=== PATIENT | male | born 1995 | race Caucasian/White ===

== ENCOUNTER 2018-02-07 00:29 | Emergency (ER) | payer SELFPAY ==
--- NOTE | 2018-02-07 01:01 | EDPHY ---
H & P Stated Complaint: CP, shaking, anxious, lightheaded x 15 min (pain resolved) Time Seen by Provider: 02/07/18 00:49 HPI/ROS: Chief Complaint: Chest pain HPI: 20-year-old male had a 50 sec episode of chest pain approximately 1 hr ago shortly after getting out of the shower. Within the left-sided chest. Patient states that after that he felt a little bit dizzy with some mild nausea. He did not lose consciousness. Did not feel like his heart was racing. Does not have a history of similar episodes in the past. Does not smoke, drink alcohol or use other drugs. No prior episodes. No family history of coronary artery disease at a young age. No leg pain or swelling. No recent falls or injuries. Currently is symptom free and without complaint. ROS: 10 systems were reviewed and were negative except those elements noted in the HPI. PMH: Denies Social History: No smoking, no alcohol, no recreational drug use Family History: non-contributory Physical Exam: Gen: Awake, Alert, No Distress HEENT: Nose: no rhinorrhea Eyes: PERRLA, EOMI Mouth: Moist mucosa Neck: Supple, no JVD Chest: nontender, lungs clear to auscultation Heart: S1, S2 normal, no murmur Abd: Soft, non-tender, no guarding Back: no CVA tenderness, no midline tenderness Ext: no edema, non-tender Skin: no rash Neuro: CN II-XII intact, Sensation grossly intact, Strength 5/5 in bilateral upper and lower extremities - Personal History Current Tetanus/Diphtheria Vaccine: Yes Current Tetanus Diphtheria and Acellular Pertussis (TDAP): Yes - Medical/Surgical History Hx Asthma: Yes Hx Chronic Respiratory Disease: No Hx Diabetes: No Hx Cardiac Disease: No Hx Renal Disease: No Hx Cirrhosis: No Hx Alcoholism: No Hx HIV/AIDS: No Hx Splenectomy or Spleen Trauma: No Other PMH: asthma - Social History Smoking Status: Never smoked Constitutional: Initial Vital Signs Heart Rate 77 02/07/18 00:30 Respiratory Rate 20 02/07/18 00:30 Blood Pressure 150/80 H 02/07/18 00:30 O2 Sat (%) 100 02/07/18 00:30 O2 Delivery Mode Room Air Allergies/Adverse Reactions: No Known Allergies Allergy (Unverified 02/07/18 00:30) Home Medications: Medication Instructions Recorded NK [No Known Home Meds] 02/07/18 Medical Decision Making - Diagnostics EKG Interpretation: ECG time 1:00 a.m., sinus rhythm with a rate of 65, normal axis, normal intervals, no acute ST or T-wave changes. Impression: Normal ECG. ED Course/Re-evaluation: 22-year-old male had a very brief episode of sharp left-sided chest pain after taking a shower. ECG is normal. He has no risk factors for coronary artery disease. He is symptom-free now. Symptoms consistent with a chest wall cramp. Subtle signs are normal. He has been reassured. Will discharge with follow- up as an outpatient, return for any concerns. Departure - Departure Disposition: Home, Routine, Self-Care Clinical Impression: Chest wall pain Condition: Good Instructions: Chest Wall Pain (ED) Additional Instructions: Follow up with primary care physician in 3-4 days for further evaluation. Return to the emergency department for return of chest pain, shortness of breath , fainting, or any other concerns. Referrals: Maria Luisa Hirsch MD [[facility] Primary Care Provider] - As per Instructions
[2018-02-07 01:19] VITALS: BP 127/74
--- NOTE | 2018-02-07 06:57 | CPEKG ---
Test Reason : OPEN Blood Pressure : / mmHG Vent. Rate : 065 BPM Atrial Rate : 065 BPM P-R Int : 150 ms QRS Dur : 091 ms QT Int : 369 ms P-R-T Axes : 023 064 028 degrees QTc Int : 384 ms Sinus rhythm Confirmed by Aroldo Gabriel ([id number]) on 02/07/2018 6:56:42 AM Referred By: Confirmed By:Aroldo Gabriel
== END 2018-02-07 01:17 | disposition home or self-care (01) ==
DX: R07.89 Other chest pain (principal)